=== PATIENT | female | born 1995 | race Caucasian/White ===

== ENCOUNTER 2018-04-03 19:04 | Emergency (ER) | payer MEDICAID ==
[~2018-04-03] VITALS: Ht 160 cm; Wt 94.3 kg
[~2018-04-03 19:04] MED LIST: AMOX1TAB10 PO; GUAI5SYR2 PO; IBUP-1561 PO
[2018-04-03 19:05] VITALS: Ht 160 cm; Wt 94.3 kg
[2018-04-03] MEDS ORDERED: IBUP-1542 PO (20:44)
[2018-04-03] MEDS ORDERED: IBUPROFEN 600 MG TAB PO ONE (21:00)
[2018-04-03 21:13] VITALS: BP 135/70; PULSE 75; RESP 17
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
== END 2018-04-03 21:15 | disposition home or self-care (01) ==
LOC: E/R 19:04
DX: S13.4XXA Sprain of ligaments of cervical spine, initial encounter (principal); V49.50XA Passenger injured in collision with unspecified motor vehicles in traffic accident, initial encounter
CPT/HCPCS: Z7502; Z7610; 99282